=== PATIENT | male | born 1955 | race Caucasian/White ===

== ENCOUNTER 2017-10-05 23:54 | Emergency (ER) | payer BC ==
[2017-10-06 00:07] VITALS: TEMP 98.4
[2017-10-06] MEDS ORDERED: GLUCAGON INJ 1 MG VIAL SUBCU ONE (00:13)
[2017-10-06] MEDS ORDERED: NITROGLYCERIN 0.4 MG 25 EA TAB SL ONE (00:13)
--- NOTE | 2017-10-06 00:16 | ED.PDOC ---
History of Present Illness - General Chief Complaint: ENT Problem Stated Complaint: piece of BBQ stuck in throat Time Seen by Provider: 10/06/17 00:09 Source: patient Exam Limitations: no limitations Additional Information: ATE PIECE OF BBQ TODAY. FEELS LIKE IT'S STUCK IN THE PROXIMAL ESOPHAGUS. HAS HAPPENED IN PAST AND HAS HAD ESOPHAGEAL DILATION IN PAST. - History of Present Illness Timing/Duration: other - 5 HOURS Severity: moderate Improving Factors: nothing Worsening Factors: nothing Associated Symptoms: other - UNABLE TO SWALLOW SALIVA Allergies/Adverse Reactions: Allergies NO KNOWN ALLERGY Allergy (Verified 10/06/17 00:07) Home Medications: Ambulatory Orders NK [NK] 10/06/17 Review of Systems - Review of Systems Constitutional: Denies: chills, fever EENTM: Denies: ear pain, throat pain Respiratory: Denies: cough, short of breath Cardiology: Denies: chest pain Gastrointestinal/Abdominal: Denies: abdominal pain, nausea, vomiting Genitourinary: States: no symptoms reported Musculoskeletal: States: no symptoms reported Skin: States: no symptoms reported Neurological: States: no symptoms reported Endocrine: States: no symptoms reported Hematologic/Lymphatic: States: no symptoms reported Past Medical History (General) - Patient Medical History Hx Seizures: No Hx Stroke: No Hx Dementia: No Hx Asthma: No Hx of COPD: No Hx Cardiac Disorders: No Hx Congestive Heart Failure: No Hx Pacemaker: No Hx Hypertension: No Hx Thyroid Disease: No Hx Diabetes: No Hx Gastroesophageal Reflux: No Hx Renal Disease: No Hx Cancer: No Hx of HIV: No Hx Hepatitis C: No Hx MRSA: No Surgical History: appendectomy - Vaccination History Hx Tetanus, Diphtheria Vaccination: No Hx Influenza Vaccination: No Hx Pneumococcal Vaccination: No - Social History Hx Tobacco Use: No Hx Alcohol Use: No Family Medical History - Family History Mother Family History: Unknown Physical Exam - Physical Exam General Appearance: Alert, No apparent distress Eye Exam: bilateral normal Ears, Nose, Throat: hearing grossly normal, normal ENT inspection Neck: non-tender, full range of motion, supple Respiratory: lungs clear, normal breath sounds Cardiovascular/Chest: regular rate, rhythm, no murmur Gastrointestinal/Abdominal: non tender, soft, no organomegaly Back Exam: normal inspection, no CVA tenderness Extremity: normal range of motion, non-tender Neurologic: alert, normal mood/affect Skin Exam: normal color, warm/dry Lymphatic: no adenopathy Progress - Progress Progress: 10/06/17 01:52 NO CHANGE, STILL CANNOT DAVI PO. IS FROM [place], [place]. WILL ATTEMPT TO GET TO [place] AT PT'S REQUEST. 10/06/17 02:17 PT'S BROTHER IS COMING UP FROM [place] TO GET HIM AND DRIVE HIM BACK TO [place]. WILL START IVF AND GIVE HIM SOMETHING FOR PAIN. ADVISED PT SHOULD BE TRANSFERRED TO NEAREST FACILITY ABLE TO HANDLE THIS HE REFUSES. DISCUSSED RISKS VS BENEFITS HE UNDERSTANDS. IE AIRWAY OBSTRUCTION, ESOPHAGEAL RUPTURE 10/06/17 04:45 NO CHANGE, BROTHER HERE Departure - Departure Clinical Impression: FB esophagus Qualifiers: Encounter type: initial encounter Qualified Code(s): T18.108A - Unspecified foreign body in esophagus causing other injury, initial encounter Time of Disposition: 04:46 Disposition: Discharge to Home or Self Care Condition: Fair Departure Forms: ED Discharge - Pt. Copy, Patient Portal Self Enrollment Instructions: Esophageal Stricture, DI for Ear Pain-Adult Home Medications: Ambulatory Orders NK [NK] 10/06/17
[2017-10-06] MEDS ORDERED: DEX 5% W/NACL 0.45% 1000ML 1,000 ML IVS ONE ×2 (02:12→02:15)
[2017-10-06] MEDS ORDERED: fentaNYL CITRATE INJ 50 MCG/ML AMP IV ONE (02:31)
[2017-10-06 04:15] VITALS: BP 134/79; O2SAT 100
== END 2017-10-06 04:55 | disposition home or self-care (01) ==
LOC: ER 23:54
DX: T18.108A Unspecified foreign body in esophagus causing other injury, initial encounter (principal); X58.XXXA Exposure to other specified factors, initial encounter
CPT/HCPCS: J1610; J3010; J7799